=== PATIENT | female | born 2005 | race Caucasian/White ===

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

== ENCOUNTER → 2023-01-15 | Outpatient (CLI) | payer BC, SELFPAY ==
[2023-01-15 12:53] LABS: Absolute Lymphocyte Count 1.94 X10^3/uL (0.83-4.51); Absolute Neutrophil Count 8.7 X10^3/uL (2.0-7.7); Basophil# 0.03 X10^3/uL; Basophil% 0.3 % (0-1); Eosinophil# 0.05 X10^3/uL; Eosinophils% 0.4 % (0-5); Hematocrit 36.9 % (37-47); Hemoglobin 12.5 g/dL (12.0-15.0); Lymphocyte # 1.94 X10^3/ul (0.83-4.51); Mean Corp Hgb Conc 33.9 g/dL (32-36); Mean Corpuscular Hgb 28.2 pg (27.0-32.0); Mean Corpuscular Volume 83.1 fL (81-99); Mean Platelet Vol. 8.9 fl (6.2-12.0); Monocyte% 5.3 % (0-10); NRBC Flagged by Analyzer 0 % (0-5); Neutrophil % 76.4 % (47-70); Platelet Count 227 K/mm3 (150-450); RBC Distribution Width SD 38.9 fl (35.1-43.9); Red Blood Count 4.44 M/mm3 (4.2-5.4); White Blood Count 11.4 K/mm3 (4.4-11.0)
[2023-01-15 13:39] LABS: HIV - WCH Non-Reactive (Nonreactive); Hepatitis B Surface Antigen Non-Reactive (Nonreactive); Hepatitis C Antibody Non-Reactive (Nonreactive); Rubella IgG Reactive (Nonreactive); Syphilis Antibodies Non-reactive
== END | disposition home or self-care (01) ==
LOC: PAVLAB 12:33
PROVIDERS: Referring Provider Obstetrics & Gynecology; Visit Provider Obstetrics & Gynecology
DX: Z34.90 Encounter for supervision of normal pregnancy, unspecified, unspecified trimester (principal)
CPT/HCPCS: 36415; 85025; 86703; 86762; 86780; 86803; 86850; 86900; 86901; 87340

== ENCOUNTER 2023-01-26 20:50 | Emergency (ER) | payer BC, SELFPAY ==
[2023-01-26 20:51] VITALS: BP 119/71; PULSE 72; RESP 18; TEMP 36.6; O2SAT 100; BMI 28.6
--- NOTE | 2023-01-26 23:31 | EDS_ITS ---
HPI HPI - Female History of Present Illness Chief Complaint: Vag Bld, Preg Informant: patient Narrative Narrative: 17-year-old female 14 weeks has been having cramping off and on for weeks, she is having some lower abdominal midline pain today that is a little different, along with light vaginal bleeding less than her menstrual period. She has had an ultrasound for this showing a single live intrauterine and has had no complications up to this point. PFSH PFSH Medical History no medical history no medical history Home Medications multivit-min no.71-iron fum 28 mg-folate no.1 1 mg-dha 300 mg capsule (PNV- [place]) 1 cap PO DAILY 12/10/22 [History Last Taken Unknown] Allergy/AdvReac Type Severity Reaction Status Date / Time Penicillins Allergy Intermediate Hives Verified 01/15/23 11:44 Family History Grandmother Breast cancer, Onset Age: 65 Maternal Grandmother Ovarian ca, Onset Age: 65 Paternal Social History adopted: No household members: spouse current occupational status: unemployed pets and animals: No history of recent travel: Yes (OR) out of state: Yes out of country: No sexually active: Yes Smoking Status: Never smoker alcohol intake: never substance use type: does not use well-balanced diet: daily or most days caffeine: Yes Type: carbonated beverages Number of servings: 1 eating out: rarely or never during the past year weight has: remained stable what type of physical activity do you participate in: weight training and other details: cardio frequency: 5-6 times per week duration: 45-60 minutes/day deann/sabianist: Religious seatbelt use: always do you feel safe at home: Yes additional social history: [employer] ROS ROS ED Constitutional Constitutional ED: Denies chills or fever(s) Eyes Eyes: Denies change in vision or diplopia ENT ENT ED: Denies rhinorrhea or sore throat Cardiovascular Cardiovascular: Denies chest pain or palpitations Respiratory/Chest Respiratory/Chest: Denies cough or dyspnea Gastrointestinal Gastrointestinal: Reports abdominal pain; Denies diarrhea, nausea or vomiting Genitourinary Genitourinary ED: Denies dysuria or hematuria Musculoskeletal Musculoskeletal: Denies back pain or neck pain Integumentary Denies abscess or rash Neurologic Neurologic: Denies headache(s), paresthesias or weakness Psychiatric Psychiatric: Denies anxiety or suicidal thoughts EXAM Physical Exam Const Vital Signs: 01/26/23 20:51 Temperature 97.9 F Temperature Source Temporal Pulse Rate 72 Respiratory Rate 18 Blood Pressure 119/71 Blood Pressure Mean 87 Pulse Ox 100 Oxygen Delivery Method Room Air Positive well nourished and well developed General Appearance ED: well developed and NAD HEENT Reports moist mucous membranes normocephalic and atraumatic Eyes PERRL and EOMs intact bilaterally Neck full ROM and supple Resp normal respiratory effort and clear to auscultation bilaterally Cardio regular rate, regular rhythm and no murmurs GI non-tender and non-distended Auscultation: normoactive bowel sounds Palpation: soft Back/Spine no CVA tenderness General Back: other FROM Extremity normal to inspection General Extremety ED: Negative for edema, pulses abnormal or tenderness General Extremity: Negative for edema or pulses abnormal Neuro oriented x3, CN's II-XII intact bilaterally and no sensory deficits noted Sensorium / Orientation: awake and alert Motor Exam: strength 5/5 throughout Skin no rashes or lesions noted and no wounds MDM MDM MDM Narrative Medical decision making narrative: Blood type is O+ no RhoGAM indicated. I did a bedside ultrasound, there is a single live intrauterine heart tones 149, the baby is mobile. Reassured, advised to follow-up with her doctor as an outpatient, and we discussed reasons to return. Lab Data Attestation: I reviewed the patient's lab results. Labs: Laboratory Results - last 24 hr 01/26/23 21:20 Blood Type O POSITIVE Discharge Plan Triage Chief Complaint: Vag Bld, Preg ED Provider: Arsalan Sharp Dx/Rx/DC Orders Clinical Impression: , threatened, antepartum Instructions: ED Possible Miscarriage ... Prescriptions: No Action PNV-[place] 28-1-300 mg capsule 1 cap PO DAILY Primary Care Provider: Care Physician,No Primary Referrals: Ema Santana MD [Med Staff - Active Staff] - 3-5 Days Disposition Disposition: Home, Self Care
== END 2023-01-26 23:44 | disposition home or self-care (01) ==
PROVIDERS: Emergency Provider Emergency Medicine; Visit Provider Emergency Medicine
DX: O20.0 Threatened abortion (principal); Z3A.14 14 weeks gestation of pregnancy
CPT/HCPCS: 86900; 86901; 99282

== ENCOUNTER → 2023-04-30 | Outpatient (CLI) | payer BC, OTHER, SELFPAY ==
[2023-04-30 15:38] LABS: Absolute Lymphocyte Count 1.89 X10^3/uL (0.83-4.51); Absolute Neutrophil Count 8.3 X10^3/uL (2.0-7.7); Basophil# 0.02 X10^3/uL; Basophil% 0.2 % (0-1); Eosinophil# 0.02 X10^3/uL; Eosinophils% 0.2 % (0-5); Hematocrit 31.2 % (37-47); Hemoglobin 10.7 g/dL (12.0-15.0); Lymphocyte # 1.89 X10^3/ul (0.83-4.51); Lymphocyte % 16.9 % (19-41); Mean Corp Hgb Conc 34.3 g/dL (32-36); Mean Corpuscular Hgb 29.6 pg (27.0-32.0); Mean Corpuscular Volume 86.2 fL (81-99); Mean Platelet Vol. 9.3 fl (6.2-12.0); Monocyte# 0.84 X10^3/uL; Monocyte% 7.5 % (0-10); NRBC Flagged by Analyzer 0 % (0-5); Neutrophil # 8.33 X10^3/uL (2.7-7.7); Neutrophil % 74.5 % (47-70); Platelet Count 216 K/mm3 (150-450); RBC Distribution Width CV 12.8 % (11.6-14.6); RBC Distribution Width SD 40.1 fl (35.1-43.9); Red Blood Count 3.62 M/mm3 (4.2-5.4); White Blood Count 11.2 K/mm3 (4.4-11.0)
[2023-04-30 15:48] LABS: Glucose Challenge Gest 1H 50g 138 mg/dL (70-140)
[2023-04-30 16:24] LABS: HIV - WCH Non-Reactive (Nonreactive); Syphilis Antibodies Non-reactive
== END | disposition home or self-care (01) ==
LOC: PAVLAB 15:06
PROVIDERS: Referring Provider Advanced Practice Midwife; Visit Provider Advanced Practice Midwife
DX: Z34.00 Encounter for supervision of normal first pregnancy, unspecified trimester (principal)
CPT/HCPCS: 36415; 82950; 85025; 86703; 86780

== ENCOUNTER → 2023-05-15 | Outpatient (CLI) | payer BC, OTHER, SELFPAY ==
[2023-05-15 08:22] LABS: Glucose GTT-Gestation. Fasting 86 mg/dL (<105)
[2023-05-15 09:03] LABS: Glucose GTT-Gestational 1 Hr 145 mg/dL (<190)
[2023-05-15 10:36] LABS: Glucose GTT-Gestational 2 Hr 115 mg/dL (<165)
[2023-05-15 11:23] LABS: Glucose GTT-Gestational 3 Hr 47 L (<145)
== END | disposition home or self-care (01) ==
LOC: LAB 07:08
PROVIDERS: Referring Provider Advanced Practice Midwife; Visit Provider Advanced Practice Midwife
DX: O99.810 Abnormal glucose complicating pregnancy (principal); Z3A.00 Weeks of gestation of pregnancy not specified
CPT/HCPCS: 36415; 82951; 82952

== ENCOUNTER → 2023-07-03 | Outpatient (CLI) | payer BC, OTHER, SELFPAY | END | disposition home or self-care (01) | LOC: LABSPEC 11:16 | PROVIDERS: Visit Provider Obstetrics & Gynecology | DX: Z34.90 Encounter for supervision of normal pregnancy, unspecified, unspecified trimester (principal) | CPT/HCPCS: 87081 ==

== ENCOUNTER 2023-07-24 22:35 | Inpatient (IN) | payer BC, OTHER, SELFPAY ==
[2023-07-24] VITALS (16 sets, daily range): BP systolic 125–153; BP diastolic 70–94; PULSE 77–100; TEMP 36.8–37.1; O2SAT 98; BMI 37.5
[2023-07-24 11:21] LABS: Protein, Urine (Random) 26.1 mg/dL (<11.9); Protein:Creat Ratio 115 mg/g CRE (0-200)
--- NOTE | 2023-07-24 11:35 | PLAC_PTH ---
PATIENT: CHRISTIANO BROCK LOC: [facility] U#:[id number] AGE/SX: 18/F ROOM: WP005 RE07/24/[address]: Dr. Ema Santana MD : 2005 BED: 1 DIS: 07/27/2023 SPEC #: [id number] RECD: 07/24/23 13:05 STATUS: CORBIN RAJWINDER #: [id number] KILLIAN: 07/24/23 11:[address]: Ema Santana DEPT: SURGICAL PATHOLOGY RECD BY: Madeleine Masters ENTERED: 07/27/23 08:40 SP TYPE: PLACENTA OTHR DR: Zuleyma Porras CNM No Primary Care Phys Tissues: Placenta, NOS Procedures: Surgery Specimen Level V HEADER OPERATION: Vaginal delivery PRE-OP DIAGNOSIS: Vaginal delivery TISSUE SUBMITTED: Placenta MICROSCOPIC DIAGNOSIS Placenta: Placental disc - third trimester placenta (489 gm) with a succenturiate lobe. - moderate acute vasculitis of subamniotic blood vessels. Membranes - marked acute chorioamnionitis. Umbilical cord - three blood vessels and moderate to marked acute funisitis. SJ: 07/29/2023 MICROSCOPIC DESCRIPTION Slides are reviewed. GROSS DESCRIPTION SPECIMEN: PLACENTA / CLINICAL INFORMATION: A. Weight: 3.64 kg B. Gestational Age: 39.6 weeks C. Sex: Male PLACENTAL WEIGHT (POST FIXATION): 489 gm PLACENTAL DIMENSIONS: Main lobe measures 16 x 15 x 3 cm, succenturiate lobe measures 7 x 4 x 1 cm PLACENTAL SHAPE: Usual ovoid with succenturiate lobe. PLACENTAL WEIGHT FOR GESTATIONAL AGE: Within 10-99th percentile MEMBRANES - Present A. Insertion: Marginal B. Site of rupture from edge: at the edge of placental disc C. Color of membrane: Causey-baez D. Abnormalities: None UMBILICAL CORD - Present A. Color: Causey-baez B. Insertion: Marginal C. Length: 48 cm D. Diameter: 1 to 1.5 cm E. Number of vessels: Three F. Abnormalities: None PLACENTAL DISC - Present A. Color of surface: Causey-baez B. surface abnormalities: None C. Maternal cotyledons: Intact with minimal tears D. Attached retro placental clot: No clot E. Cut surface: Dark red and spongy F. Lesions: None G. Separate clot: Absent SECTIONS SUBMITTED: 1. Membrane roll 2. Cord, maternal end and succenturiate lobe 3. Cord, end 4. Placental disc, and maternal surfaces 5. Placental disc, and maternal surfaces 6. Placental disc, and maternal surfaces SJ:genoveva, 07/28/23 TC:2 CPT: 67544
[2023-07-24 12:57] LABS: Hematocrit 37.4 % (37-47); Hemoglobin 12.5 g/dL (12.0-15.0); Mean Corp Hgb Conc 33.4 g/dL (32-36); Mean Corpuscular Hgb 28.5 pg (27.0-32.0); Mean Corpuscular Volume 85.2 fL (81-99); Mean Platelet Vol. 10.5 fl (6.2-12.0); Platelet Count 206 K/mm3 (150-450); RBC Distribution Width CV 15.9 % (11.6-14.6); RBC Distribution Width SD 49.8 fl (35.1-43.9); Red Blood Count 4.39 M/mm3 (4.2-5.4); White Blood Count 10.6 K/mm3 (4.4-11.0)
[2023-07-24 13:07] LABS: AST(SGOT) 20 U/L (15-37); Alanine Aminotransfer ALT/SGPT 24 U/L (13-56); Creatinine, Serum 0.64 mg/dL (0.55-1.02); EST Glomerular Filtration Rate 127 mL/min (>60); Est Glom Filt Rate - Afr Amer 153 mL/min (>60); Estimated Creatinine Clearance 115.99 ml/min; Uric Acid 4.1 mg/dL (2.6-6.0)
--- NOTE | 2023-07-24 14:20 | OB.TRI.PN_ITS ---
Progress Notes Date of Service: 07/24/23 Progress Note: Patient presents for triage evaluation secondary to elevated bp in office. FHT: 135 Moderate variability reactive no decelerations category I tracing [place]: irregular Contractions Assessment and plan: Reactive NST, reassuring maternal and status patient discharged to home to follow-up on for IOL. See problem list details for additional plan information. Laboratory Studies: Laboratory Tests 07/24/23 07/24/23 Range/Units 12:05 11:07 WBC 10.6 (4.4-11.0) K/mm3 RBC 4.39 (4.2-5.4) M/mm3 Hgb 12.5 (12.0-15.0) g/dL Hct 37.4 (37-47) % MCV 85.2 (81-99) fL MCH 28.5 (27.0-32.0) pg MCHC 33.4 (32-36) g/dL RDW Std Deviation 49.8 H (35.1-43.9) fl RDW Coeff of Nella 15.9 H (11.6-14.6) % Plt Count 206 (150-450) K/mm3 MPV 10.5 (6.2-12.0) fl Creatinine 0.64 (0.55-1.02) mg/dL Estim Creat Clear Calc 115.99 ml/min Est GFR (MDRD) Af Amer 153 (>60) mL/min Est GFR (MDRD) Non-Af 127 (>60) mL/min Uric Acid 4.1 (2.6-6.0) mg/dL AST 20 (15-37) U/L ALT 24 (13-56) U/L U Random Total Protein 26.1 H (<11.9) mg/dL Urine Creatinine 227.00 (NO RANGE EST.) mg/dL Protein/Creatinin Ratio 115 (0-200) mg/g CRE Charges/Coding Multi Select Codes Urinary/Genital Urinary/Genital CPT Codes: 13217-22 non-stress test Interp Assessment & Plan (1) Elevated blood pressure complicating , antepartum: COMMENT: pre e labs nl, nl bp in wp. D/C home (2) Yeast infection involving the vagina and surrounding area: COMMENT: Diflucan ordered. (3) Anemia affecting in third trimester: COMMENT: add iron repeat cbc 1 month (4) Abnormal glucose affecting : COMMENT: 3 hour ordered- WNL (5) pyelectasis: COMMENT: recommended repeat ultrasound to reevaluate- patient declined. patient counseled regarding risks of baby may need antibiotics after or pediatric urology evaluation. patient declined US at this time. (6) Supervision of normal first : COMMENT: PRR , EMILEE 07/25/23 boy Hoa Dennis (7) : QUALIFIERS: Weeks of gestation: 39 weeks Qualified Code(s): Z3A.39 - 39 weeks gestation of COMMENT: GBS Negative, anatomy nl, declined NIPT & Carrier, afp testing.
--- NOTE | 2023-07-24 22:33 | HP.PCM.OB_ITS ---
HPI - General General Date of Admission: 07/24/23 Date of Service: 07/24/23 HPI Narrative CHRISTIANO BROCK, is a 18 F at 39.6 weeks who presents for SROM and elevated BPs at home. Maternal Data Information EMILEE Calculator Estimated Delivery Date Method Current WG Current Estimate 07/25/23 LMP (Certain) 39w 6d Other Estimates 07/21/23 Ultrasound #1 40w 3d Final EMILEE: 07/25/23 Final EMILEE Source: US >20 weeks Gestational age: 39.6 weeks PFSH PFSH Medical History pyelectasis Home Medications multivit-min no.71-iron fum 28 mg-folate no.1 1 mg-dha 300 mg capsule (PNV- [place]) 1 cap PO DAILY 12/10/22 [History Last Taken 07/23/23 17:00 1 cap] ondansetron 4 mg disintegrating tablet 4 mg PO Q4H PRN nausea and vomiting #60 tabs 01/29/23 [Rx Last Taken 07/17/23] magnesium 200 mg tablet 200 mg PO DAILY 05/07/23 [History Last Taken 07/23/23 17:00 200 mg] ferrous sulfate 325 mg (65 mg iron) tablet (iron) 325 mg PO DAILY 07/24/23 [History Last Taken 07/23/23 17:00 325 mg] Allergy/AdvReac Type Severity Reaction Status Date / Time Penicillins Allergy Intermediate Hives Verified 07/24/23 12:20 Family History Grandmother Breast cancer, Onset Age: 65 Maternal Grandmother Ovarian ca, Onset Age: 65 Paternal Social History adopted: No household members: spouse current occupational status: unemployed pets and animals: No history of recent travel: Yes (OR) out of state: Yes out of country: No sexually active: Yes Smoking Status: Never smoker alcohol intake: never substance use type: does not use well-balanced diet: daily or most days caffeine: Yes Type: carbonated beverages Number of servings: 1 eating out: rarely or never during the past year weight has: remained stable what type of physical activity do you participate in: weight training and other details: cardio frequency: 5-6 times per week duration: 45-60 minutes/day deann/gnosticism: [employer] seatbelt use: always do you feel safe at home: Yes additional social history: [employer] History 1 Elective abortions Hx Para 0 Spontaneous abortions Hx # Term Pregnancies Ectopic pregnancies Hx # Pregnancies Multiple births # of living children Visit Details Expected Delivery Route/Plan Labor Preferences- CB/BF classes: Discussed labor support person: labor intervention preferences: none pain management options preferred: open to epidural cut cord/dad catch: maybe : wants PP control planned: [] discussed possible routes of delivery and associated risks: [] special requests: [] Plans Covid status: discussed Flu vaccine: discussed Tdap vaccine: declined Rhogam: na LARC form signed: declined movement and labor precautions reviewed. Problem list reviewed and updated with the most current plan of care details and appropriate orders placed. Relevant counseling for the gestational age provided. Continue routine care and follow up unless otherwise noted in visit notes/problem list details OB Flowsheet Initial Weight: 161 lb Date -?-?-?-?-?-?-?-?-?-?-?-?- EGA Weight BP Urine Prot -?-?-?-?-?-?-?-?-?-?-?-?- Glucose FHR FuHt Pres Dilation -?-?-?-?-?-?-?-?-?-?-?-?- Effaced St Visit Note 12/18/22 -?-?-?-?-?-?-?-?-?-?-?-?- 8w 5d 161 lb (+0 oz) 125/62 -?-?-?-?-?-?-?-?-?-?-?-?- 170 -?-?-?-?-?-?-?-?-?-?-?-?- SM- CRL 2cm cons with LMP 01/15/23 -?-?-?-?-?-?-?-?-?-?-?-?- 12w 5d 156 lb 6 oz (-4 lb 10 oz) 96/62 Negative -?-?-?-?-?-?-?-?-?-?-?-?- Negative 155 -?-?-?-?-?-?-?-?-?-?-?-?- JV- needs new ob labs. declined nipt. no complaints. 01/29/23 -?-?-?-?-?-?-?-?-?-?-?-?- 14w 5d 159 lb 8 oz (-1 lb 8 oz) 100/62 Negative -?-?-?-?-?-?-?-?-?-?-?-?- Negative 154 -?-?-?-?-?-?-?-?-?-?-?-?- -ED follow up. Seen 01/26 for spotting and cramping. No further spotting. still with cramping. Nausea persists and asks for Rx. Reviewed normal PN labs. 02/12/23 -?-?-?-?-?-?-?-?-?-?-?-?- 16w 5d 161 lb 6 oz (+6 oz) 117/72 Negative -?-?-?-?-?-?-?-?-?-?-?-?- Negative 157 0 -?-?-?-?-?-?-?-?-?-?-?-?- -Has had 4-5 e pisodes of vag spotting since last visit. Last time was 4 days ago/unrelated to IC. US ordered. 03/12/23 -?-?-?-?-?-?-?-?-?-?-?-?- 20w 5d 169 lb 2 oz (+8 lb 2 oz) 110/66 Trace -?-?-?-?-?-?-?-?-?-?-?-?- Negative 150 21 -?-?-?-?-?-?-?-?-?-?-?-?- SM- no vb lof go od fm no regular ctx having a BOY 04/10/23 -?-?-?-?-?-?-?-?-?-?-?-?- 24w 6d 175 lb (+14 lb) 110/66 -?-?-?-?-?-?-?-?-?-?-?-?- 145 26 -?-?-?-?-?-?-?-?-?-?-?-?- KW-+fm. no lof/v b/ctx. discussed US results in depth. Declines NIPT and 28 week US because insurance did not pay for the last one, plans to follow up with Pedi urology after . 28 week labs discussed and glucose given. 05/07/23 -?-?-?-?-?-?-?-?-?-?-?-?- 28w 5d 183 lb 4 oz (+22 lb 4 oz) 117/68 Negative -?-?-?-?-?-?-?-?-?-?-?-?- Negative 140 29 -?-?-?-?-?-?-?-?-?-?-?-?- SM- no vb lof go od fm no regular ctx discussed lab results 05/21/23 -?-?-?-?-?-?-?-?-?-?-?-?- 30w 5d 186 lb 2 oz (+25 lb 2 oz) 112/66 1+ -?-?-?-?-?-?-?-?-?-?-?-?- Negative 145 30 -?-?-?-?-?-?-?-?-?-?-?-?- KW- no lof/vb/ct x. good fm. no concerns. 06/05/23 -?-?-?-?-?-?-?-?-?-?-?-?- 32w 6d 193 lb (+32 lb) 119/79 -?-?-?-?-?-?-?-?-?-?-?-?- 140 33 -?-?-?-?-?-?-?-?-?-?-?-?- SM- no vb lof go od fm no regular ctx discussed repeat US for following pyelectasis, order through hospital 06/19/23 -?-?-?-?-?-?-?-?-?-?-?-?- 34w 6d 199 lb 6 oz (+38 lb 6 oz) 118/70 Trace -?-?-?-?-?-?-?-?-?-?-?-?- Negative 140 35 Cephalic -?-?-?-?-?-?-?-?-?-?-?-?- SM- no vb lof go od fm no regular ctx SM- no vb lof good fm no reg ular ctx counseled regarding getting ultrasound to reevaluate pyelectasis, patient considering but likely declining 07/03/23 -?-?-?-?-?-?-?-?-?-?-?-?- 36w 6d 204 lb 8 oz (+43 lb 8 oz) 122/84 Negative -?-?-?-?-?-?-?-?-?-?-?-?- Negative 140 37 Cephalic 0 .5 -?-?-?-?-?-?-?-?-?-?-?-?- SM- no vb lof go od fm no regular ctx gbs done, discussed fu ultrasound and possible eval after , voiced understanding patient declining ultrasound 07/09/23 -?-?-?-?-?-?-?-?-?-?-?-?- 37w 5d 205 lb (+44 lb) 107/68 Negative -?-?-?-?-?-?-?-?-?-?-?-?- Negative 140 38 Cephalic 1 -?-?-?-?-?-?-?-?-?-?-?-?- 60 -2 KW-no vb/l of/ctx. good fm 07/17/23 -?-?-?-?-?-?-?-?-?-?-?-?- 38w 6d 214 lb 2 oz (+53 lb 2 oz) 112/73 Negative -?-?-?-?-?-?-?-?-?-?-?-?- Negative 134 39 Cephalic 1 -?-?-?-?-?-?-?-?-?-?-?-?- 50 -2 LC- no vb/ ctx/lof. good fm. 07/24/23 -?-?-?-?-?-?-?-?-?-?-?-?- 39w 6d 212 lb (+51 lb) 148/92 Trace -?-?-?-?-?-?-?-?-?-?-?-?- Negative 130 40 Cephalic -?-?-?-?-?-?-?-?-?-?-?-?- KW-no vb/lof/ctx . good fm. No hays/dizziness/BV. to wp for evaluation-BPs NST FHR Rate Baby A Baseline: 145 Variability:: Moderate Accelerations:: 15 x 15 Decelerations:: None NST Reactive:: Yes FHR Category:: Category I Uterine Activity:: 3-4 minutes ROS Constitutional Constitutional: Denies change in weight, fatigue, fever(s), headache(s), poor appetite or weakness Eyes Eyes: Denies blurry vision, change in vision, floaters, seeing flashes or spots in vision ENT HEENT: Denies dizziness, headache(s), loss taste/smell or sore throat Cardiovascular Cardiovascular: Denies chest pain, dizziness, dyspnea, irregular heart rhythm, lightheadedness, palpitations or rapid heart rate Respiratory/Chest Respiratory/Chest: Denies change in mental status, chest tightness, cough, dyspnea or breast pain Gastrointestinal Gastrointestinal: Denies anorexia, chewing difficulty, constipation, diarrhea or weight changes Genitourinary Genitourinary: Denies difficulty urinating, dysuria, flank pain, genital pain, urinary frequency or urinary urgency Musculoskeletal Musculoskeletal: Denies back pain, difficulty walking, extremity pain, joint pain, muscle cramps or muscle weakness Integumentary Integumentary: Denies lesions or unusual bruising Neurologic Neurologic: Denies abnormal movements, abnormal speech, dizziness, numbness, seizure-like activity, syncope or weakness Psychiatric Psychiatric: Denies behavioral changes, change in appetite, confusion, depression, homicidal ideation, suicidal ideation or suicidal thoughts Endocrine Endocrinology: Denies excessive sweating, polydipsia or polyuria Hematologic/Lymphatic Hematologic/Lymphatic: Denies anemia Allergic/Immunologic Allergic/Immunologic: Denies itchy eyes, lip swelling, throat swelling, tongue swelling or wheezing Vital Signs Vital Signs Vital Signs: 07/24/23 11:45 07/24/23 11:45 07/24/23 12:01 Temperature Temperature Source Pulse Rate 98 Blood Pressure 125/82 H 130/84 H BP Systolic 125 130 BP Diastolic 82 84 Pulse Ox 07/24/23 12:01 07/24/23 12:16 07/24/23 12:16 Temperature Temperature Source Pulse Rate 87 81 Blood Pressure 126/74 H BP Systolic 126 BP Diastolic 74 Pulse Ox 07/24/23 12:16 07/24/23 12:16 07/24/23 12:31 Temperature 98.7 F Temperature Source Temporal Pulse Rate Blood Pressure 125/79 H BP Systolic 125 BP Diastolic 79 Pulse Ox 07/24/23 12:31 07/24/23 12:46 07/24/23 12:46 Temperature Temperature Source Pulse Rate 88 81 Blood Pressure 129/78 H BP Systolic 129 BP Diastolic 78 Pulse Ox 07/24/23 13:01 07/24/23 13:01 07/24/23 13:17 Temperature Temperature Source Pulse Rate 77 Blood Pressure 136/94 H 134/86 H BP Systolic 136 134 BP Diastolic 94 86 Pulse Ox 07/24/23 13:17 07/24/23 13:31 07/24/23 13:31 Temperature Temperature Source Pulse Rate 85 82 Blood Pressure 136/86 H BP Systolic 136 BP Diastolic 86 Pulse Ox 07/24/23 13:46 07/24/23 13:46 07/24/23 14:01 Temperature Temperature Source Pulse Rate 84 Blood Pressure 126/73 H 128/70 H BP Systolic 126 128 BP Diastolic 73 70 Pulse Ox 07/24/23 14:01 07/24/23 21:57 07/24/23 21:57 Temperature Temperature Source Pulse Rate 86 90 Blood Pressure 153/90 H BP Systolic 153 BP Diastolic 90 Pulse Ox 07/24/23 21:57 07/24/23 21:58 07/24/23 21:58 Temperature 98.4 F Temperature Source Temporal Pulse Rate Blood Pressure BP Systolic BP Diastolic Pulse Ox 98 07/24/23 22:12 07/24/23 22:12 07/24/23 22:27 Temperature Temperature Source Pulse Rate 88 Blood Pressure 144/93 H 138/89 H BP Systolic 144 138 BP Diastolic 93 89 Pulse Ox 07/24/23 22:27 Temperature Temperature Source Pulse Rate 100 Blood Pressure BP Systolic BP Diastolic Pulse Ox Weight Weight: 212 lb Body Mass Index (BMI) 37.5 Physical Exam Const alert, oriented x3 and no apparent distress General Appearance: cooperative Orientation / Consciousness: awake HEENT normocephalic Neck full ROM Lymph Lymphatic: no lymphadenopathy noted Chest inspection of chest normal Resp normal respiratory effort and normal air movement Effort and Inspection: able to speak in complete sentences and symmetric chest movement GI soft to palpation and non-tender Inspection: gravid Palpation: soft; Negative for tender external exam normal Manual OB Exam: dilated 3, effaced 80 and station -2 Uterus Palpation: uterus fundus firm Back/Spine normal to inspection Extremity normal to inspection and full ROM Skin no rashes or lesions noted Psych mental status grossly normal Appearance: grossly normal Speech: normal speech Labs Labs Labs: Blood Type O POSITIVE Antibody Screen NEGATIVE Hct 37.4 % (37-47) Hgb 12.5 g/dL (12.0-15.0) Syphilis Total Ab Non-reactive Rubella IgG Antibody Reactive (Nonreactive) Hep Bs Antigen Non-Reactive (Nonreactive) Hepatitis C Antibody Non-Reactive (Nonreactive) Chlamydia DNA ([place]) Negative (Negative) N.gonorrhoeae DNA ([place]) Negative (Negative) HIV 1&2 Antibody Non-Reactive (Nonreactive) Glucose 1 Hr 50 gm 138 mg/dL (70-140) Gest Glucose Tolerance MG/DL Assessment & Plan (1) Gestational hypertension: (2) SROM (spontaneous rupture of membranes): PLAN: Patient presents IAL, plan expectant management for , pitocin/AROM PRN if needed. Pain management: plans epidural. GBS neg. Management of any complications: gestational htn I have reviewed the [facility] and made any clinically relevant updates. (3) Elevated blood pressure complicating , antepartum: COMMENT: pre e labs nl, nl bp in wp. D/C home (4) Yeast infection involving the vagina and surrounding area: COMMENT: Diflucan ordered. (5) Anemia affecting in third trimester: COMMENT: add iron repeat cbc 1 month (6) Abnormal glucose affecting : COMMENT: 3 hour ordered- WNL (7) pyelectasis: COMMENT: recommended repeat ultrasound to reevaluate- patient declined. patient counseled regarding risks of baby may need antibiotics after or pediatric urology evaluation. patient declined US at this time. (8) Supervision of normal first : COMMENT: PRR , EMILEE 07/25/23 boy Hoa Dennis (9) : QUALIFIERS: Weeks of gestation: 39 weeks Qualified Code(s): Z3A.39 - 39 weeks gestation of COMMENT: GBS Negative, anatomy nl, declined NIPT & Carrier, afp testing. Charges/Coding Procedures Urinary/Genital [id number]: No Charge
[2023-07-24 23:14] LABS: Absolute Lymphocyte Count 2.38 X10^3/uL (0.83-4.51); Absolute Neutrophil Count 10.8 X10^3/uL (2.0-7.7); Basophil# 0.04 X10^3/uL; Basophil% 0.3 % (0-1); Eosinophil# 0.06 X10^3/uL; Eosinophils% 0.4 % (0-5); Hematocrit 37.9 % (37-47); Hemoglobin 12.1 g/dL (12.0-15.0); Lymphocyte # 2.38 X10^3/ul (0.83-4.51); Lymphocyte % 16.1 % (19-41); Mean Corp Hgb Conc 31.9 g/dL (32-36); Mean Corpuscular Hgb 27.7 pg (27.0-32.0); Mean Corpuscular Volume 86.7 fL (81-99); Mean Platelet Vol. 10.5 fl (6.2-12.0); Monocyte# 1.39 X10^3/uL; Monocyte% 9.4 % (0-10); NRBC Flagged by Analyzer 0 % (0-5); Neutrophil # 10.77 X10^3/uL (2.7-7.7); Neutrophil % 72.8 % (47-70); Platelet Count 220 K/mm3 (150-450); RBC Distribution Width CV 15.9 % (11.6-14.6); RBC Distribution Width SD 49.9 fl (35.1-43.9); Red Blood Count 4.37 M/mm3 (4.2-5.4); White Blood Count 14.8 K/mm3 (4.4-11.0)
[2023-07-24 23:32] LABS: Creatinine, Urine (random) < 13.00 mg/dL (NO RANGE EST.); Protein, Urine (Random) 158.6 mg/dL (<11.9)
[2023-07-24 23:50] LABS: Syphilis Antibodies Non-reactive
[2023-07-24] MEDS: fentaNYL 100 MCG/2 ML Ampul IV (23:57)
[2023-07-24] MEDS: Lactated Ringers 1,000 ML 50 ML IV (23:57)
[2023-07-25] VITALS (74 sets, daily range): BP systolic 104–160; BP diastolic 47–101; PULSE 79–219; RESP 14–18; TEMP 35.7–38.7; O2SAT 76–100
[2023-07-25] MEDS: Ondansetron 4 MG/2 ML Vial IV ×2 (00:09→04:52)
[2023-07-25] MEDS: LACTATED RINGERS 500 ML 999 ML IV ×3 (00:34→06:34)
[2023-07-25] MEDS: fentaNYL-bupivacaine (epidural) 100 ML BAG EPIDURAL ×3 (01:45→10:25)
[2023-07-25] MEDS: Amnioinfusion- 0.9% NS 1,000 ML IV.SOLN. 1000 ML INTRA-UTER (04:17)
[2023-07-25] MEDS: Lactated Ringers 1,000 ML 200 ML IV (06:34)
--- NOTE | 2023-07-25 06:47 | PN_ITS ---
Progress Note comfortable with epidural current tracing: FHT: 145 Moderate variability reactive occasional variable category II tracing [place]: 1-2 minute Contractions Membranes: ruptured at 2200 07/24/23 remains clear SVE: /0 reviewed tracing abnormalities since last note: amino infusion started over night for variables A/P: Continue with position changes Epidural per anesthesia Anticipate Dr Santana aware of plan and agrees with plan of care Assessment & Plan Assessment/Plan (1) SROM (spontaneous rupture of membranes): PLAN: continue current POC (2) Gestational hypertension: (3) Elevated blood pressure complicating , antepartum: (4) Yeast infection involving the vagina and surrounding area: (5) Anemia affecting in third trimester: (6) Abnormal glucose affecting : (7) Supervision of normal first : (8) : QUALIFIERS: Weeks of gestation: 39 weeks Qualified Code(s): Z3A.39 - 39 weeks gestation of (9) pyelectasis: Multi Select Codes Urinary/Genital Urinary/Genital CPT Codes: No Charge
[2023-07-25] MEDS: Clindamycin 900 MG/50 ML BAG 75 MG IV ×3 (09:11→23:48)
[2023-07-25] MEDS: Acetaminophen 500 MG Tablet PO (09:26)
--- NOTE | 2023-07-25 09:34 | PCM.PN.BLA ---
Progress Note comfortable with epidural current tracing: FHT: 160 Moderate variability reactive variables with pushing category II tracing [place]: 2-2.5 minutes Contractions Membranes: ruptured- remains clear SVE:10 and pushing reviewed tracing abnormalities since last note: Tachycardic and maternal fever. III atbs started A/P: Continue with position changes Antibiotics for suspected III Epidural per anesthesia Anticipate Dr Santana aware of plan and agrees with plan of care Assessment & Plan Assessment/Plan (1) Gestational hypertension: (2) SROM (spontaneous rupture of membranes): (3) Elevated blood pressure complicating , antepartum: (4) Yeast infection involving the vagina and surrounding area: (5) Anemia affecting in third trimester: (6) Abnormal glucose affecting : (7) Supervision of normal first : (8) : QUALIFIERS: Weeks of gestation: 39 weeks Qualified Code(s): Z3A.39 - 39 weeks gestation of (9) pyelectasis: Multi Select Codes Urinary/Genital Urinary/Genital CPT Codes: No Charge
[2023-07-25] MEDS: Gentamicin IV 260 MG in Dextrose 5%-Water (50mL Bag) 50 ML 100 MG IVPB (09:54)
[2023-07-25] MEDS: Oxytocin 15 Units/NS 250ml 15 UNITS/250 ML IV.SOLN 83 UNITS IV (11:37)
[2023-07-25] MEDS: Oxytocin 10 UNITS/ML Vial IM (11:37)
--- NOTE | 2023-07-25 11:40 | PN_ITS ---
Progress Note comfortable with epidural current tracing: FHT: 145 Moderate variability reactive variables with pushing category II tracing [place]: 2-3 minute Contractions Membranes: SVE: reviewed tracing abnormalities since last note: [ ] A/P: Continue with position changes Epidural per anesthesia Antibiotics for suspected III Anticipate Dr Timmons consulted for 4 hours of pushing and maternal fatigue. notified of maternal request for kiwi Dr Santana aware of plan and agrees with plan of care Assessment & Plan Assessment/Plan (1) Gestational hypertension: (2) SROM (spontaneous rupture of membranes): (3) Elevated blood pressure complicating , antepartum: (4) Yeast infection involving the vagina and surrounding area: (5) Anemia affecting in third trimester: (6) Supervision of normal first : (7) Abnormal glucose affecting : (8) : QUALIFIERS: Weeks of gestation: 39 weeks Qualified Code(s): Z3A.39 - 39 weeks gestation of (9) pyelectasis: Multi Select Codes Urinary/Genital Urinary/Genital CPT Codes: No Charge
--- NOTE | 2023-07-25 11:50 | OP.PCM_ITS ---
Assessment & Plan (1) Arrest of descent, delivered, current hospitalization: (2) Gestational hypertension: (3) SROM (spontaneous rupture of membranes): (4) Anemia affecting in third trimester: COMMENT: add iron repeat cbc 1 month (5) Supervision of normal first : COMMENT: PRR , EMILEE 07/25/23 vee Camara Dennis (6) : QUALIFIERS: Weeks of gestation: 39 weeks Qualified Code(s): Z3A.39 - 39 weeks gestation of COMMENT: GBS Negative, anatomy nl, declined NIPT & Carrier, afp testing. (7) pyelectasis: COMMENT: recommended repeat ultrasound to reevaluate- patient declined. patient counseled regarding risks of baby may need antibiotics after or pediatric urology evaluation. patient declined US at this time. (8) Maternal exhaustion complicating labor and delivery: (9) Vacuum-assisted vaginal delivery: COMMENT: KW/SM 40 ghtn matl exhaustion VAVD vee Camara Maternal Data Information EMILEE Calculator Estimated Delivery Date Method Current WG Current Estimate 07/25/23 LMP (Certain) 40w 0d Other Estimates 07/21/23 Ultrasound #1 40w 4d Vaginal Delivery Operative Information Date of Procedure: 07/25/23 Pre-Operative Diagnosis: see a/p diagnoses Post-Operative Diagnosis: same Surgery / Procedure Performed: Vacuum Assisted Vaginal Delivery (2 pulls no pop offs) Type of Anesthesia: Epidural Special Medications: none Estimated Blood Loss: 400 Fluids Replaced: crystalloid Findings Description of Procedure: Patient began pushing and after 4-1/2 hours head was at a +3 station and DIONNE with caput and patient was experiencing maternal exhaustion and requested vacuum. Patient was consented for delivery and the vacuum was applied to the green zone, poles were made with 2 contractions no pop offs, total duration 4 minutes and delivered the head in the DIONNE presentation. The head was delivered atraumatically . The anterior and posterior shoulders delivered without complication followed by the rest of the infant and the was placed on the maternal abdomen. Delayed cord clamping was employed for approximately 60 seconds. Cord was clamped and cut and gentle traction was applied to the cord and the placenta delivered spontaneously immediately following it was noted to be intact with three-vessel cord. The perineum and vagina were inspected and noted to have a second degree perineal laceration which was repaired in the usual fashion with 3-0 vicryl rapide.. EBL was 400. Patient and infant tolerated delivery well. 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
--- NOTE | 2023-07-25 11:55 | PCM.DC ---
Discharge Instructions Diet Discharge Diet: No restrictions Activity Discharge Activity: Return to Normal Activity, May Not Drive (while taking narcotic pain medications.) and May Shower May resume sexual activity in: 4-6 weeks Dressing / Incision Call your doctor if your incision/area has: Continuous Slow Oozing, Sudden Increased Bleeding, Increased Pain/ Swelling, Increased Redness and Foul Smelling Discharge Follow Up Care Please Follow Up With: Ema Santana MD When: Call [phone] to make an appointment with your doctor in 6 weeks. If you had elevated blood pressure or 4th degree laceration, you will need to be seen in 2 weeks. Test Results: Test results from this visit will be discussed in further detail at your follow-up appointment, if applicable. Discharge Plan Admission Admit Date/Time: 07/24/23 22:35 Attending Provider: Ema Santana Primary Care Provider: Care Physician,No Primary Instructions Patient Instructions: Kick Counts, ED False Labor, OB Triage: Return to Hospital or Notify Physician if you Experience: Discharge Orders/Prescriptions Prescriptions: No Action PNV-[place] 28-1-300 mg capsule 1 cap PO DAILY ondansetron 4 mg tablet,disintegrating 4 mg PO Q4H PRN (Reason: nausea and vomiting) Qty: 60 2RF magnesium 200 mg tablet 200 mg PO DAILY ferrous sulfate [iron] 325 mg (65 mg iron) tablet 325 mg PO DAILY Referrals / Follow Up: Care Physician,No Primary [Primary Care Provider] - Disposition Disposition (needs filled in before D/C Order can be placed): Home, Self Care
[2023-07-25] MEDS: Ibuprofen 600 MG Tablet PO ×2 (14:17→21:04)
[2023-07-25] MEDS: Senna/Docusate Sodium 1 Tablet PO (14:17)
[2023-07-25] MEDS: Acetaminophen 500 MG Tablet 1000 MG PO (18:06)
[2023-07-26] MEDS: Acetaminophen 500 MG Tablet 1000 MG PO ×2 (02:43→20:39)
[2023-07-26] MEDS: 0.9% Saline Lock 10 ML Syringe IV ×2 (02:43→09:56)
[2023-07-26] MEDS: Benzocaine/Lanolin/Aloe Vera 1 SPRAY EACH TOPICAL (02:49)
[2023-07-26 04:31] VITALS: BP 122/53; PULSE 96; RESP 16; TEMP 36.8; O2SAT 96
[2023-07-26] MEDS: Ibuprofen 600 MG Tablet PO ×2 (07:50→19:04)
[2023-07-26 07:53] VITALS: BP 117/75; PULSE 80; RESP 16; TEMP 36.3
[2023-07-26] MEDS: Clindamycin 900 MG/50 ML BAG 75 MG IV (09:55)
--- NOTE | 2023-07-26 10:26 | PCM.PN.OB ---
Subjective Subjective Patient doing well without complaints. Tolerating PO. Ambulating and voiding without difficulty. Feeding well. Denies chest pain, shortness of breath, calf pain/swelling, fevers, chills, lightheadedness. Objective Data Objective Data Vital Signs: Vital Signs Temp Pulse Resp BP Pulse Ox O2 Del Method 97.3 F L 80 16 117/75 96 Room Air 07/26/23 07:53 07/26/23 07:53 07/26/23 07:53 07/26/23 07:53 07/26/23 04:31 07/26/23 04:31 Oxygen Delivery Method Room Air Weight: 212 lb Body Mass Index (BMI) 37.5 Intake & Output: Intake and Output for Last 24 Hours 07/24/23 07/25/23 07/26/23 23:59 23:59 22:59 Intake Total 4476.50 / 4476.50 26.25 / 26.25 Output Total 2650 / 2650 Balance 1826.50 / 1826.50 26.25 / 26.25 Lab / Micro Data 07/24/23 22:55 07/24/23 12:05 ROS Constitutional Constitutional: Reports systems reviewed and no addt'l complaints, except as documented; Denies anorexia or headache(s) Cardiovascular Cardiovascular: Reports systems reviewed and no addt'l complaints, except as documented; Denies dizziness, dyspnea, nausea or tachypnea Respiratory/Chest Respiratory/Chest: Reports systems reviewed and no addt'l complaints, except as documented; Denies cough, dyspnea, shortness of breath at rest or tachypnea Gastrointestinal Gastrointestinal: Reports systems reviewed and no addt'l complaints, except as documented; Denies abdominal pain, constipation or nausea Genitourinary Genitourinary: Reports systems reviewed and no addt'l complaints, except as documented; Denies burning urination, difficulty urinating, dysuria, urinary frequency or urinary incontinence Musculoskeletal Musculoskeletal: Reports systems reviewed and no addt'l complaints, except as documented Integumentary Integumentary: Reports systems reviewed and no addt'l complaints, except as documented Neurologic Neurologic: Reports systems reviewed and no addt'l complaints, except as documented; Denies abnormal speech, dizziness or headache(s) Psychiatric Psychiatric: Reports systems reviewed and no addt'l complaints, except as documented Endocrine Endocrinology: Reports systems reviewed and no addt'l complaints, except as documented Hematologic/Lymphatic Hematologic/Lymphatic: Reports systems reviewed and no addt'l complaints, except as documented Physical Exam Const alert, oriented x3 and no apparent distress Neck full ROM Resp normal respiratory effort, normal air movement and no retractions Effort and Inspection: able to speak in complete sentences and symmetric chest movement GI soft to palpation Bladder / Kidney Exam: bladder normal to palpation Uterus Palpation: uterus fundus firm Extremity normal to inspection and full ROM Psych mental status grossly normal, thought process normal and cooperative Assessment & Plan (1) Vacuum-assisted vaginal delivery: COMMENT: KW/SM 40 ghtn matl exhaustion VAVD boy Hoa PLAN: s/p PPD # 1 1. routine post delivery care 2. breast feeding- support given 3. rh positive 4. rubella immune (2) Gestational hypertension: Charges/Coding Multi Select Codes Urinary/Genital Urinary/Genital CPT Codes: No Charge
[2023-07-26 13:51] VITALS: BP 122/73; PULSE 89; RESP 16; TEMP 36.4
[2023-07-26 20:26] VITALS: BP 128/75; PULSE 89; RESP 16; TEMP 37.1
[2023-07-26 23:45] LABS: Pathology Specimen OB SEE PATHOLOGY REPORT
[2023-07-27] MEDS: Ibuprofen 600 MG Tablet PO ×2 (02:07→08:58)
[2023-07-27 02:08] VITALS: BP 115/70; PULSE 81; RESP 16; TEMP 36.6
[2023-07-27] MEDS: Acetaminophen 500 MG Tablet 1000 MG PO (05:15)
[2023-07-27 08:43] VITALS: BP 135/79; PULSE 85; RESP 18; TEMP 36.7; O2SAT 97
--- NOTE | 2023-07-27 09:33 | PCM.PN.OB ---
Subjective Subjective Patient doing well without complaints. Tolerating PO. Ambulating and voiding without difficulty. Feeding well. Denies chest pain, shortness of breath, calf pain/swelling, fevers, chills, lightheadedness. Objective Data Objective Data Vital Signs: Vital Signs Temp Pulse Resp BP Pulse Ox O2 Del Method 98.1 F 85 18 135/79 H 97 Room Air 07/27/23 08:43 07/27/23 08:43 07/27/23 08:43 07/27/23 08:43 07/27/23 08:43 07/27/23 08:43 Oxygen Delivery Method Room Air Weight: 212 lb Body Mass Index (BMI) 37.5 Intake & Output: Intake and Output for Last 24 Hours 07/26/23 07/26/23 07/27/23 00:59 23:59 23:59 Intake Total Output Total Balance Lab / Micro Data 07/24/23 22:55 07/24/23 12:05 Physical Exam Const alert, oriented x3 and no apparent distress Neck full ROM Resp normal respiratory effort, normal air movement and no retractions Effort and Inspection: able to speak in complete sentences and symmetric chest movement GI soft to palpation Bladder / Kidney Exam: bladder normal to palpation Uterus Palpation: uterus fundus firm Extremity normal to inspection and full ROM Psych mental status grossly normal, thought process normal and cooperative Assessment & Plan (1) Vacuum-assisted vaginal delivery: COMMENT: KW/SM 40 ghtn matl exhaustion VAVD boy Hoa (2) Gestational hypertension: COMMENT: BP stable PP without medications. PLAN: Plan s/p PPD # 1 1. routine post delivery care 2. breast feeding- support given 3. rh positive 4. rubella immune 5. d/c home today
== END 2023-07-27 10:20 | disposition home or self-care (01) | DRG 806 ==
LOC: LABSPEC 22:36 → WP 22:36
PROVIDERS: Admitting Provider Obstetrics & Gynecology; Referring Provider Advanced Practice Midwife; Visit Provider Obstetrics & Gynecology
DX: O75.81 Maternal exhaustion complicating labor and delivery (principal); Z37.0 Single live birth; N13.30 Unspecified hydronephrosis; O62.1 Secondary uterine inertia; O13.4 Gestational [pregnancy-induced] hypertension without significant proteinuria, complicating childbirth; O70.1 Second degree perineal laceration during delivery; B37.31 Acute candidiasis of vulva and vagina; Z3A.39 39 weeks gestation of pregnancy; O99.893 Other specified diseases and conditions complicating puerperium
CPT/HCPCS: 36415; 59025; 59050; 82565; 82570; 84156; 84450; 84460; 84550; 85025; 85027; 86780; 86850; 86900; 86901; 88307; 99221; J7030; J7120; A4216; G0378; J2405

== ENCOUNTER → 2023-12-29 | Outpatient (CLI) | payer BC, OTHER, SELFPAY ==
[2023-12-29 12:00] LABS: hCG Titer Quant., Serum 508 mIU/mL (1-3)
== END | disposition home or self-care (01) ==
LOC: PAVLAB 08:47
PROVIDERS: Referring Provider Obstetrics & Gynecology; Visit Provider Obstetrics & Gynecology
DX: Z34.90 Encounter for supervision of normal pregnancy, unspecified, unspecified trimester (principal)
CPT/HCPCS: 36415; 84702

== ENCOUNTER → 2023-12-31 | Outpatient (CLI) | payer BC, OTHER, SELFPAY ==
[2023-12-31 10:14] LABS: hCG Titer Quant., Serum 1324 mIU/mL (1-3)
== END | disposition home or self-care (01) ==
LOC: PAVLAB 09:01
PROVIDERS: Referring Provider Obstetrics & Gynecology; Visit Provider Obstetrics & Gynecology
DX: Z34.90 Encounter for supervision of normal pregnancy, unspecified, unspecified trimester (principal)
CPT/HCPCS: 36415; 84702

== ENCOUNTER → 2024-01-07 | Outpatient (CLI) | payer BC, OTHER, SELFPAY ==
--- NOTE | 2024-01-07 11:22 | US_ITS ---
STUDY: FIRST TRIMESTER OBSTETRICAL ULTRASOUND (TWINS) REASON FOR EXAM: Female, 18 years old. LMP: 10/26/2023 dating TECHNIQUE: Transvaginal TECHNICAL QUALITY: Adequate. COMPARISON: None. FINDINGS: There is a single gestational sac. There is a single identified placenta, without a ?twin peak? sign, indicating a probable monochorionic . The amniotic membrane cannot be visualized. The estimated gestation age (EGA) by LMP is 10 weeks, 3 days. The estimated date of delivery (EMILEE) by LMP is 08/01/2024. BABY A The mean sac diameter (MSD) measure 14 mm, indicating an estimated gestational age (EGA) of 6 weeks, 2 days. There is a visualized yolk sac. The yolk sac measures 2 mm. There is visualization of an embryo. The crown-rump length (CRL) measures 2 mm, indicating an estimated gestational age (EGA) of weeks, days. The estimated gestation age (EGA) by US is 6 weeks, 2 days. The estimated date of delivery (EMILEE) by US is 08/30/2024. Cardiac activity is not detected.. BABY B The mean sac diameter (MSD) measure 14 mm, indicating an estimated gestational age (EGA) of 6 weeks, 2 days. There is a visualized yolk sac. The yolk sac measures 3 mm. There is visualization of an embryo. The crown-rump length (CRL) measures 2 mm, indicating an estimated gestational age (EGA) of weeks, days. The estimated gestation age (EGA) by US is 6 weeks, 2 days. The estimated date of delivery (EMILEE) by US is 08/30/2024. Cardiac activity is not detected. MATERNAL ANATOMY The uterus measures 7.6 x 5.1 x 6.5 cm cm. There is no demonstrated uterine fibroid. The cervix is closed. The right ovary measures 3.0 x 2.4 x 2.7 cm. There is no right ovarian cyst. There is no visualized right adnexal mass or complex lesion. The left ovary measures 3.4 x 1.9 x 2.9 cm. There is no left ovarian cyst. There is no visualized left adnexal mass or complex lesion. There is no fluid in the cul de sac. US/Transvaginal w/Preg US IMPRESSION: Twin gestation within a single gestational sac. Cardiac activity not detected due to small size of the fetus. Follow-up is recommended. Electronically Signed: Arturo Escudero MD at 23:51 EDT ,
== END | disposition home or self-care (01) ==
LOC: US 11:17
PROVIDERS: PCP Registered Nurse; Referring Provider Obstetrics & Gynecology; Visit Provider Obstetrics & Gynecology
DX: Z34.90 Encounter for supervision of normal pregnancy, unspecified, unspecified trimester (principal)
CPT/HCPCS: 76817

== ENCOUNTER → 2024-01-18 | Outpatient (CLI) | payer BC, OTHER, SELFPAY ==
--- NOTE | 2024-01-18 11:23 | US_ITS ---
INDICATION: repeat US. viability. EXAMINATION: Ultrasound US OB Transvaginal TECHNIQUE: Transvaginal (for optimal evaluation of the adnexa) pelvic ultrasound was performed. Grayscale, spectral waveform, and color flow Doppler evaluation of the adnexa. COMPARISON: 01/07/2024 LMP: [11/05/2023 Beta-hCG: Unknown FINDINGS: UTERUS: 9.6 x 7.0 x 6.1 cm. RIGHT OVARY: 3.5 x 2.8 x 2.1 cm. Normal. LEFT OVARY: 3.0 x 2.6 x 2.1 cm. Normal. FREE FLUID: None. INTRAUTERINE GESTATIONAL SAC: Twin. Twin A: YOLK SAC: Identified POLE: Identified CRL 0.73 cm. ESTIMATED GESTATION AGE: 6 weeks 5 days. HEART MOTION: 119 bpm. PLACENTA: Not visualized due to age. SUBCHORIONIC HEMORRHAGE: None. AMNIOTIC FLUID: Qualitatively normal. Twin B: YOLK SAC: Identified POLE: Identified CRL 0.67 cm. Second complex echogenic structure located adjacent to twin B fetus without heart motion. ESTIMATED GESTATION AGE: 6 weeks 5 days. HEART MOTION: 116 bpm. PLACENTA: Not visualized due to age. SUBCHORIONIC HEMORRHAGE: None. AMNIOTIC FLUID: Qualitatively normal. IMPRESSION: Live twin intrauterine pregnancies at 6 weeks 5 days EGA. EMILEE 09/07/2024. Second complex echogenic structure adjacent to twin B demonstrates no heart beat is of uncertain clinical significance. Obstetrical and sonographic follow-up recommended. Electronically Signed: Ino Trotter MD at 17:45 EDT , INDICATION: repeat US. viability. EXAMINATION: Ultrasound US OB Transvaginal TECHNIQUE: Transvaginal (for optimal evaluation of the adnexa) pelvic ultrasound was performed. Grayscale, spectral waveform, and color flow Doppler evaluation of the adnexa. COMPARISON: 01/07/2024 LMP: [11/05/2023 Beta-hCG: Unknown FINDINGS: UTERUS: 9.6 x 7.0 x 6.1 cm. RIGHT OVARY: 3.5 x 2.8 x 2.1 cm. Normal. LEFT OVARY: 3.0 x 2.6 x 2.1 cm. Normal. FREE FLUID: None. INTRAUTERINE GESTATIONAL SAC: Twin. Twin A: YOLK SAC: Identified POLE: Identified CRL 0.73 cm. ESTIMATED GESTATION AGE: 6 weeks 5 days. HEART MOTION: 119 bpm. PLACENTA: Not visualized due to age. SUBCHORIONIC HEMORRHAGE: None. AMNIOTIC FLUID: Qualitatively normal. Twin B: YOLK SAC: Identified POLE: Identified CRL 0.67 cm. Second complex echogenic structure located adjacent to twin B fetus without heart motion. ESTIMATED GESTATION AGE: 6 weeks 5 days. HEART MOTION: 116 bpm. PLACENTA: Not visualized due to age. SUBCHORIONIC HEMORRHAGE: None. AMNIOTIC FLUID: Qualitatively normal. US/Transvaginal w/Preg US IMPRESSION: Live twin intrauterine pregnancies at 6 weeks 5 days EGA. EMILEE 09/07/2024. Second complex echogenic structure adjacent to twin B demonstrates no heart beat is of uncertain clinical significance. Obstetrical and sonographic follow-up recommended. Electronically Signed: Ino Trotter MD at 17:46 EDT ,
== END | disposition home or self-care (01) ==
LOC: US 11:22
PROVIDERS: PCP Registered Nurse; Referring Provider Obstetrics & Gynecology; Visit Provider Obstetrics & Gynecology
DX: Z34.90 Encounter for supervision of normal pregnancy, unspecified, unspecified trimester (principal)
CPT/HCPCS: 76817

== ENCOUNTER 2024-02-16 11:42 | Day surgery (SDC) | payer OTHER, SELFPAY ==
[2024-02-16] MEDS: Lactated Ringers 1,000 ML 15 ML IV (12:21)
[2024-02-16] MEDS: Doxycycline 100 MG CAPSULE PO (12:21)
[2024-02-16 12:22] VITALS: BP 111/76; PULSE 70; RESP 16; TEMP 36.4; O2SAT 100; BMI 32.8
[2024-02-16 13:05] LABS: Hematocrit 39.6 % (37-47); Hemoglobin 13.5 g/dL (12.0-15.0); Mean Corp Hgb Conc 34.1 g/dL (32-36); Mean Corpuscular Hgb 27.9 pg (27.0-32.0); Mean Corpuscular Volume 81.8 fL (81-99); Mean Platelet Vol. 9.3 fl (6.2-12.0); Platelet Count 241 K/mm3 (150-450); RBC Distribution Width CV 12.9 % (11.6-14.6); RBC Distribution Width SD 38.5 fl (35.1-43.9); Red Blood Count 4.84 M/mm3 (4.2-5.4)
--- NOTE | 2024-02-16 13:32 | HP.PCM_ITS ---
History and Physical Date of Admission: 02/16/24 Intake Vital Signs 09/04/2313:56 02/11/2414:35 02/11/2414:37 Height 5 ft 3 in 5 ft 3 in 5 ft 3 in Weight: 186 lb BMI 32.9 BP 113/70 Intake Visit Reasons: NOB Paperhanger Required: No Is patient in pain?: No Allergies Penicillins Allergy (Intermediate, Verified 02/12/24 14:35) Hives Medications ?Medication ?Instructions ?Recorded ?Confirmed ?Type multivit-min no.71-iron fum 28 1 cap PO DAILY 12/10/22 02/12/24 History mg-folate no.1 1 mg-dha 300 mg capsule (PNV-[place]) magnesium 200 mg tablet 200 mg PO DAILY 05/07/23 02/12/24 History ferrous sulfate 325 mg (65 mg 325 mg PO DAILY 07/24/23 02/12/24 History iron) tablet (iron) Last Menstrual Period: 10/18/22 Zika: Zika virus screening: Negative : No PFSH PFSH Medical History Gestational HTN pyelectasis Family History Grandmother Breast cancer, Onset Age: 65 MaternalGrandmother Ovarian ca, Onset Age: 65 Paternal Social History adopted: No household members: spouse number of children: 1 current occupational status: unemployed current occupation: [employer] pets and animals: No history of recent travel: Yes (OR) out of state: Yes out of country: No sexually active: Yes Smoking Status: Never smoker alcohol intake: never substance use type: does not use well-balanced diet: daily or most days caffeine: No eating out: rarely or never during the past year weight has: increased > 10 lbs what type of physical activity do you participate in: walking frequency: 5-6 times per week duration: 45-60 minutes/day deann/rastafarian: Hinduism seatbelt use: always do you feel safe at home: Yes additional social history: [employer] History 2 Elective abortions Hx Para 1 Spontaneous abortions 1 Hx # Term Pregnancies 1 Ectopic pregnancies Hx # Pregnancies Multiple births # of living children 1 Past Pregnancies Del. Date Name GA/Weeks Outcome Route Bth Weight Infant Gen Labor Lgth Anesthesia Del Locatn Provider FOB 07/25/23 Ryalexander 40 live - full term va cuum Male epidural [facility] KW/ Dennis Delivery Date: 07/25/23 Last Updated by: Ashley Walker LPN see problem list for complications, and KW/SM 40 ghtn matl exhaustion VAVD boy Ryson HPI NOB Details: CHRISTIANO BROCK is a 18 year old who presents for New OB visit, however upon exam she was found to have a twin demise measuring 7 weeks 4 days. She is now being scheduled for a suction dilation and curettage on thursday next week. She denies bleeding or cramping. OB Visit Comments: HIV: Urine Culture: Sequential Screen: NIPT Screen: Estimated Due Date: 09/10/24 Menstrual History Last Menstrual Period: 10/18/22 Reported LMP: unknown Normal amount/duration: Yes Frequency in days: 30 On hormonal BC at conception: No hCG+: 12/21/23 Antepartum Record Genetic Screening: Congenital Heart Defect: Other, Neural Tube Defect: Other, Hemoglobinopathy Or Carrier: Other, Cystic Fibrosis: Other, Chromosome Abnormality: Other, -Sachs: Other, Hemophilia: Other, Intellectual Disab ility/Autism: Other, Recurrent Loss/Stillbirth: Other, Other Structural Defect: Other, Other Genetic Disease: Other and Maternal Metabolic Disorder: Other Infection History: Live with someone with TB or Exposed to TB: No, Patient or Partner has history of Genital Herpes: No, Rash or Viral illness since last mentrual period: No, Prior GBS-Infected child: No, History of STD: No, HIV Infection: No, History of Hepatitis: No, Recent travel outside of [place]: No, Concern for hepatitis exposure: No, Varicella immune: Yes (immune) and Covid Vaccinated: No Medical History Medical History: Positive: Hypertension (Gestational HTN in first ), Psychiatric (anxiety) and Drug/latex allergies/reactions (PCN) and Negative: Diabetes, Heart disease, Auto-immune disorder, Kidney disease/UTI, Neurologic/epilepsy, Depression/ depression, Hepatitis/liver disease, Varicosities/phlebitis, Thyroid dysfunction, Trauma/domestic violence, History of blood transfusions, D (Rh) Sensitized, Pulmonary (e.g.,TB,Asthma), Seasonal allergies, Breast, Model Builder surgery, Operations/hospitalizations, Anesthetic complications, History of abnormal pap, Uterine anomaly/nico, Infertility, Anti- retroviral treatment, Relevant family history and Other ACOG First Trimester First Trimester: Desire for , Alcohol, Tobacco Cessation, Illicit/Recreational Drug/Substance Use, Intimate Partner Violence, Barriers to care, Unstable Housing, Communication Barriers, Environmental/Work Hazards, Anticipated Course of Care, Toxoplasmosis Precations, Use of Any medications, Sexual activity, Exercise, Dental Care, Sauna/Hot tub use, Seat Belt use, Childbirth classes/Hospital facilities, , Travel, Indications for Ultrasound and Screening for Aneuploidy Second Trimester Second Trimester: Signs and Symptoms of Labor, Selecting a care provider, Reproductive Life Planning & Contreception, Care Planning, Depression/Anxiety and Intimate Partner Violence; Discussed Tobacco Cessation Third Trimester Third Trimester: Pain Management Plans, Labor support person(s), Immediate Larc, Movement Monitoring, Signs and Symptoms of Preeclampsia and Education ROS Const All systems reviewed & are unremarkable except as noted in H Resp Reports system reviewed and no additional complaints, except as documented and Denies cough GI Reports as per HPI Psych Reports system reviewed and no additional complaints, except as documented Exam Const General: cooperative, healthy appearing, comfortable and no acute distress Resp Effort & Inspection: normal respiratory effort General: bimanual renal exam normal bilaterally External Female Exam: normal appearance of the urethra Urethra: normal appearance of the urethra Speculum Exam - Vagina: normal appearance of the vagina Speculum Exam - Cervix: normal appearance of the cervix Bimanual Exam- Adnexa, other: normal adnexae and normal Pelvic Support: normal Other: TV ultrasound shows likely mono/mono twins both demised measuring 7 weeks 4 days. Skin General: no rashes or lesions noted Psych Appearance: grossly normal Speech and Movement: speech and movement normal Coding Level of Care Code Off vis,est,level 4 Diagnoses History of gestational hypertension Z87.59 Obesity (BMI 30.0-34.9) E66.9 Supervision of high-risk O09.90 Z34.90 Hx of delivery by vacuum extraction, currently O09.299 Anxiety F41.9 Unknown date of last menstrual period, antepartum Z34.90 Early stage of Z34.90 Missed O02.1 Assessment and Plan Assessment and Plan (1) History of gestational hypertension: Status: Acute Comment: Baseline Pre-e labs with NOB labs (2) Obesity (BMI 30.0-34.9): Status: Acute (3) Supervision of high-risk : Status: Acute Comment: , EMILEE 09/10/24, PC Hoa Dennis (4) : Status: Acute Comment: decline genetic & carrier testing (5) Hx of delivery by vacuum extraction, currently : Status: Acute (6) Anxiety: Status: Acute (7) Unknown date of last menstrual period, antepartum: Status: Acute (8) Early stage of : Status: Acute Comment: . unsure of dates. (9) Missed : After discussing the patient's diagnosis and treatment plan options, patient wishes to proceed with surgical management. I have discussed with the patient the risks, benefits, and alternatives of the procedure which include but are not limited to risks of anesthesia, bleeding, infection, possible damage to bowel, bladder, or surrounding vasculature which could lead to additional surgery to evaluate any complications. Patient agrees to procedure and wishes to proceed. ACOG/uptodate references given for additional information regarding procedure. plan is for suction dilation and curettage for missed twin
--- NOTE | 2024-02-16 13:32 | PCM.DC ---
Discharge Instructions Diet Discharge Diet: No restrictions Activity Discharge Activity: Return to Normal Activity, May Shower and May Take a Tub Bath (after 1 week) May resume sexual activity in: 1-2 weeks Weight Bearing Status: Weight bearing as tolerated Lifting Restrictions: none Dressing / Incision Call your doctor if you observe: Fever of 101 or Higher, Using more than 1 pad per hour, Shortness of breath and Uncontrolled pain Follow Up Care Please Follow Up With: Valerie Cruz DO When: Call [phone] to schedule appointment. Test Results: Test results from this visit will be discussed in further detail at your follow-up appointment, if applicable. Discharge Plan Admission Primary Reason for Your Visit: dilation and curettage Attending Provider: Valerie Cruz Primary Care Provider: Brenda Tillman NP Instructions Print Language: Kazakh Discharge Orders/Prescriptions Prescriptions: New ibuprofen 800 mg tablet 800 mg PO Q8H PRN (Reason: pain) Qty: 30 0RF oxycodone-acetaminophen [Percocet] 5-325 mg tablet 1 tab PO Q4H PRN (Reason: pain) 3 Days Qty: 7 0RF Rx Instructions: 1-2 tabs q 4 hrs as needed for pain Referrals / Follow Up: Brenda Tillman NP, [employer] EDUCATION CONSULTANT[facility] [Primary Care Provider] - Disposition Disposition (needs filled in before D/C Order can be placed): Home, Self Care
--- NOTE | 2024-02-16 14:00 | POC_PTH ---
PATIENT: CHRISTIANO BROCK LOC: [facility] [place] U#:[id number] AGE/SX: 18/F ROOM: RE02/16/[address]: Dr. Valerie Cruz DO : 2005 BED: DIS: 02/16/2024 SPEC #: [id number] RECD: 02/16/24 14:38 STATUS: CORBIN PURDY #: [id number] KILLIAN: 02/16/24 14:[address]: Valerie Cruz DEPT: SURGICAL PATHOLOGY RECD BY: Stephanie Nathan ENTERED: 02/17/24 10:43 SP TYPE: PROD CONC OTHR DR: Brenda Tillman, RAYA-Raysa Tissues: Product of conception, NOS Procedures: Surgery Specimen Level IV HEADER OPERATION: D&C, suction, Anora testing PRE-OP DIAGNOSIS: Missed TISSUE SUBMITTED: Products of conception (twins) for Anora testing MICROSCOPIC DIAGNOSIS Endometrium, curettage: Chorionic villi, decidualized stroma and trophoblastic cells consistent with products of conception. AM:mr 02/18/2024 COMMENT The specimen is evaluated at the time of collection by Dr. Oconnor. Specimen sent to [facility] for testing. Report viewable in patient's EMR. MICROSCOPIC DESCRIPTION Slides are reviewed. GROSS DESCRIPTION Received in fixative is one container labeled with the patient's name and designated Products of conception. The specimen consists of multiple irregular fragments of pink-suero tissue measuring in aggregate 8.0 x 6.0 x 1.0cm. parts are not grossly recognized. Spray Gunner portions are submitted for Anora testing. Spray Gunner portions are submitted in one cassette. AM/mr 02/17/2024 TC:5 CPT:53399
[2024-02-16] MEDS: Lidocaine 1% (30 ml sdv) 30 ML Vial (14:17)
[2024-02-16 14:42] VITALS: BP 108/72; BP 111/76; PULSE 66; RESP 16; TEMP 36.3; O2SAT 98
--- NOTE | 2024-02-16 14:44 | OP.PCM_ITS ---
Problems Associated Problem List Diagnoses (1) Missed : Report of Operation Date of Procedure: 02/16/24 Pre-Operative Diagnosis: missed , twin gestation, 11 weeks Post-Operative Diagnosis: missed , twin gestation, 11 weeks Surgeon: Valerie Cruz matchbook assembler: None Type of Anesthesia: MAC and Topical Anesth Estimated Blood Loss (mL): 25cc Description of Procedure: Patient was taken to the operating room and placed under MAC local anesthesia. She was prepped and draped in the normal sterile fashion the dorsal lithotomy position. Bladder was drained of clear urine and anterior lip of the cervix was grasped and the uterus sounded to 12 cm. The Cervix was progressively dilated to allow passage of a size 8 curved suction curette. Progressive passes were made removing the retained products of conception without complication. Sharp curettage confirmed complete removal of the retained products. The procedure was performed under ultrasound guidance. All instruments were removed from the vagina and excellent hemostasis was noted and the patient was taken to recovery in stable condition. Admit VTE Documentation VTE Present on Admission: No VTE Mechan Device Prophylaxis: SCD's VTE Pharm Prophylaxis ordered?: No Multi Select Codes Urinary/Genital Urinary/Genital CPT Codes: 01277 Surg Trtmt missed Ab 1TM
[2024-02-16 14:45] VITALS: BP 106/67; BP 111/76; PULSE 67; RESP 16; O2SAT 98
[2024-02-16 14:50] VITALS: BP 111/76; BP 113/75; PULSE 63; RESP 16; O2SAT 99
[2024-02-16 14:53] VITALS: BP 107/79; BP 111/76; PULSE 60; RESP 18; TEMP 36.2; O2SAT 100
[2024-02-16 15:24] VITALS: BP 111/76
[2024-02-16 23:44] LABS: Pathology Specimen OB SEE PATHOLOGY REPORT
== END 2024-02-16 15:39 | disposition home or self-care (01) ==
LOC: SDC 11:43 → AC 11:44
PROVIDERS: PCP Registered Nurse; Referring Provider Obstetrics & Gynecology; Visit Provider Obstetrics & Gynecology
PROC: (CPT 59820; principal; 2024-02-16 13:45)
DX: O02.1 Missed abortion (principal); O99.211 Obesity complicating pregnancy, first trimester; O30.001 Twin pregnancy, unspecified number of placenta and unspecified number of amniotic sacs, first trimester; E66.9 Obesity, unspecified; Z3A.11 11 weeks gestation of pregnancy
CPT/HCPCS: 59820; 01965; 85027; 86850; 86900; 86901; 88305